=== PATIENT | female | born 1950 | race Caucasian/White ===

== ENCOUNTER → 2017-05-10 | Outpatient (CLI) | payer BC ==
[~2017-05-10] MED LIST: CALC-338 PO; CITA20TA4 PO; CLX40 PO; ERGO1CAP35 PO; FIBER PO; GUMMY VITAMINS PO; LEVO50TA PO; LISI-725 PO; OXYC-57 PO; SNK PO; ferrous sulfate PO
== END | disposition home or self-care (01) ==
LOC: C.PAPS 10:46
PROVIDERS: ATTEND Obstetrics & Gynecology
DX: Z01.411 Encounter for gynecological examination (general) (routine) with abnormal findings (principal)

== ENCOUNTER → 2017-05-10 | Outpatient (CLI) | payer BC ==
--- NOTE | 2017-05-11 15:39 | MAMMOGRAPHY REPORT ---
BILATERAL DIGITAL SCREENING MAMMOGRAM TOMOSYNTHESIS WITH CAD: 05/10/2017 CLINICAL HISTORY: Routine screening. TECHNIQUE: Breast tomosynthesis in addition to standard 2D mammography was performed. Current study was also evaluated with a Computer Aided Detection (CAD) system. COMPARISON: Comparison is made to exams dated: 04/02/2016 mammogram, 01/01/2015 mammogram, 09/19/2013 m ammogram, 08/25/2012 mammogram, 08/18/2011 mammogram, and 08/14/2010 mammogram - [facility] nter. BREAST COMPOSITION: There are scattered areas of fibroglandular density in both breasts. FINDINGS: There is stable asymmetry in the 12:00 left breast, and mild vascular calcifications bilate rally. No suspicious mass, architectural distortion or cluster of microcalcifications is seen. IMPRESSION: ACR BI-RADS CATEGORY 1: NEGATIVE There is no mammographic evidence of malignancy. A 1 year screening mammogram is recommended. The pa tient will receive written notification of the results. Approximately 10% of breast cancers are not detected with mammography. A negative mammographic report should not delay biopsy if a clinically suggestive mass is present. Nataly Ocampo M.D. ay/:05/10/2017 15:46:59 Surgical Manager: Sachin LOTT(R)(M), [facility] letter sent: Normal 1/2 BI-RADS Code: ACR BI-RADS Category 1: Negative
== END | disposition home or self-care (01) ==
LOC: C.MAMM 12:21
PROVIDERS: ATTEND Obstetrics & Gynecology
DX: Z12.31 Encounter for screening mammogram for malignant neoplasm of breast (principal)

== ENCOUNTER 2017-08-18 09:39 | Inpatient (IN) | payer BC, OTHER ==
[2017-08-02 13:47] VITALS: BMI 27.0
[2017-08-02 14:14] LABS: BASO % 0.2 %; BASO ABS # 0.01 K/uL (0-0.2); EOS % 1.4 %; EOS ABS # 0.07 K/uL (0-0.5); HEMATOCRIT 38.8 % (37-47); HEMOGLOBIN 12.6 g/dL (12.0-16.0); LYMPH % 23.1 %; LYMPH ABS # 1.16 K/uL (1.2-3.4); MEAN CELL VOLUME 91.7 fL (80-100); MEAN CORPUSCULAR HEMOGLOBIN 29.8 pg (25-34); MEAN CORPUSCULAR HGB CONC 32.5 g/dl (32-36); MEAN PLATELET VOLUME 11.8 fL (7.4-10.4); MONO % 7.4 %; MONO ABS # 0.37 K/uL (0.11-0.59); NEUT % 67.9 %; NEUT ABS # 3.42 K/uL (1.4-6.5); PLATELET COUNT 213 K/uL (130-400); RED CELL DISTRIBUTION WIDTH CV 13.2 % (11.5-14.5); RED CELL DISTRIBUTION WIDTH SD 44.2 fL (36.4-46.3); WHITE BLOOD COUNT 5.03 K/uL (4.8-10.8)
[2017-08-02 14:28] LABS: HEMOGLOBIN A1C 5.8 % (4.5-5.6)
[2017-08-02 14:29] LABS: ALBUMIN 3.5 gm/dl (3.4-5.0); CALCIUM 8.6 mg/dl (8.5-10.1); CREATININE 0.8 mg/dl (0.60-1.20); POTASSIUM 3.6 mmol/L (3.5-5.1)
--- NOTE | 2017-08-02 14:30 | PAT Medication Instructions ---
Service Date Aug 02, 2017. Current Home Medication List Cholecalciferol (Vitamin D3), 1 TAB PO WK Citalopram Hydrobromide (Citalopram), 1 TAB PO QAM Ferrous Sulfate (Iron), 1 TAB PO QAM Ibuprofen (Advil), 200-400 MG PO Q8 PRN for Pain Levothyroxine Sodium (Synthroid), 50 MCG PO QAM Lisinopril (Zestril), 20 MG PO QAM Multiple Vitamin (Multiple Vitamins), 4 PIECE PO QDL Omeprazole (Prilosec), 20 MG PO QAM Pramipexole Dihydrochloride (Pramipexole Dihydrochlori), 1 TAB PO QPM Ranitidine (Zantac), 150 MG PO QAM Medication Instructions For Your Scheduled Surgery -Check with the surgeon for instructions for: Ibuprofen (Advil), 200-400 MG PO Q8 PRN for Pain - Hold the following medications the night before surgery: Pramipexole Dihydrochloride (Pramipexole Dihydrochlori), 1 TAB PO QPM - Hold the following medications the morning of surgery: Cholecalciferol (Vitamin D3), 1 TAB PO WK Ferrous Sulfate (Iron), 1 TAB PO QAM Lisinopril (Zestril), 20 MG PO QAM - Take the following medications the morning of surgery with a sip of water: Citalopram Hydrobromide (Citalopram), 1 TAB PO QAM Levothyroxine Sodium (Synthroid), 50 MCG PO QAM Omeprazole (Prilosec), 20 MG PO QAM Ranitidine (Zantac), 150 MG PO QAM - Take the following medications as scheduled the afternoon/night before surgery : Multiple Vitamin (Multiple Vitamins), 4 PIECE PO QDL If you have any questions please call us at [phone] or [phone] or [phone]
--- NOTE | 2017-08-02 14:56 | DIAGNOSTIC IMAGING REPORT ---
CHEST 2 VIEWS ROUTINE HISTORY: 67 years-old Female PAT preoperative exam. No acute chest complaints. COMPARISON: Chest radiograph 11/13/2014 TECHNIQUE: PA and lateral views of the chest FINDINGS: Cardiomediastinal and hilar silhouettes are within normal limits. There is no pneumothorax, pleural effusion, focal airspace consolidation or overt pulmonary edema. Atherosclerosis of the aorta. The bones of the chest appear grossly intact. Multilevel endplate spurring about the spine. PEG tube projects over the upper abdomen. IMPRESSION: No acute process. The above report was generated using voice recognition software. It may contain grammatical, syntax or spelling errors. Electronically signed by: Melecio Rossi M.D. 08/02/2017 2:55 PM Dictated Date/Time: 08/02/2017 2:54 PM
--- NOTE | 2017-08-17 11:31 | HISTORY & PHYSICAL EXAMINATION ---
DATE OF ADMISSION: 08/18/2017 CHIEF COMPLAINT: Right knee pain. HISTORY OF PRESENT ILLNESS: The patient is a 67-year-old female with known osteoarthritis about her right knee. She has had a previous corticosteroid injection with minimal relief. She has pain with activities of daily living. She has pain with prolonged weightbearing and standing activities. She has difficulty with any kneeling, bending, or squatting activities. Due to ongoing pain and disability, she now desires to proceed with right total knee arthroplasty. PAST MEDICAL HISTORY: Hypertension, depression, hypothyroidism, anemia, acid reflux, obesity. PAST SURGICAL HISTORY: Gastric bypass, laparoscopic band surgery, hand surgery. MEDICATIONS: Lisinopril 20 mg daily, levothyroxine 50 mcg daily, multivitamin daily, Citracal plus D daily, vitamin D3 a 1000 units daily, citalopram 40 mg daily, omeprazole 20 mg daily, Mobic 15 mg daily. ALLERGIES: No known drug allergies. SOCIAL HISTORY AND REVIEW OF SYSTEMS: Noncontributory. PHYSICAL EXAMINATION: GENERAL: Well-nourished, well-developed female who appears her stated age. HEENT: Normocephalic, atraumatic, extraocular movements intact, oropharynx pink and moist. NECK: Supple without adenopathy. LUNGS: Clear to auscultation bilaterally. HEART: Regular rate and rhythm. ABDOMEN: Soft, nontender, nondistended. EXTREMITIES: The upper extremities are within normal limits. The right knee has a neutral alignment. Her range of motion from 0 to 125 degrees. She complains primarily of medial compartment pain. She has mild crepitus with range of motion. X-RAYS: X-rays were reviewed. She has a slight varus aligned knee. She has bone on bone arthritis of the medial compartment with medial joint line osteophytes. ASSESSMENT: Right knee degenerative joint disease. PLAN: Risks versus benefits were discussed, consent was obtained. We will proceed with right total knee arthroplasty as indicated.
[2017-08-18] VITALS (8 sets, daily range): BP systolic 111–140; BP diastolic 67–91; PULSE 64–82; TEMP 36.4–36.9; O2SAT 94–100; Ht 165.1 cm; Wt 74.3 kg
[~2017-08-18] VITALS: Ht 165.1 cm; Wt 74.3 kg
[2017-08-18] MEDS: TRANEXAMIC ACID INJ 1,000 MG x 2 Bags IV SCH ×4 (06:30→11:55)
[~2017-08-18 09:39] MED LIST changes: +ACETAMINOPHEN 500 MG TAB PO SCH; +BUPIVACAINE/EPINEPHRINE 0.5% MPF 1:200,000 30 ML VIAL ONE; -CALC-338 PO; +CEFAZOLIN 1000MG IV PUSH 7.5 ML IV SCH; +CHOL1000 PO; +CITA-294 PO; -CITA20TA4 PO; -CLX40 PO; +CeleBREX 200 MG CAP PO SCH; +DEXAMETHASONE 4 MG TAB PO SCH; +DEXAMETHASONE SOD INJ 4 MG/ML VIAL ONE; -ERGO1CAP35 PO; +FAMOTIDINE 20 MG TAB PO SCH; +FERR1TAB23 PO; -FIBER PO; +GABAPENTIN 300 MG CAP PO SCH; -GUMMY VITAMINS PO; +IBUP-1050 PO; +LACTATED RINGER'S 1000ML 1,000 ML IV SCH; +LACTATED RINGER'S 1000ML 500 ML IV SCH; +METOCLOPRAMIDE HCL 10 MG TAB PO SCH; +MULT-94 PO; -OXYC-57 PO; +PRAM0.259 PO; +PRLSR20 PO; +RANI150T85 PO; +ROPIVACAINE 5MG/ML 30 ML 150 MG, BUPIVACAINE 0.5% MPF INJ 30 ML, EpINEphrine HCL INJ 0.... INFIL SCH; -SNK PO; +SODIUM CHLORIDE 0.9% INJ 10 ML VIAL ONE; -ferrous sulfate PO
--- NOTE | 2017-08-18 10:00 | History & Physical Bridge Note ---
H&P Re-Evaluation Bridge Note: I have examined the patient, reviewed the History & Physical and in the interval since the performance of the History & Physical I have noted the following changes of clinical significance: No changes noted
[2017-08-18] MEDS ORDERED: CALC1CHW71 PO (10:08)
[2017-08-18] MEDS ORDERED: BACITRACIN 50000 UNIT VIAL ONE (10:29)
[2017-08-18] MEDS ORDERED: ORTHO JOINT ANESTHETIC ONE (10:29)
[2017-08-18] MEDS ORDERED: POVIDONE-IODINE OP SOLN 30 ML BTL ONE (10:29)
[2017-08-18] MEDS ORDERED: FENTANYL CITRATE INJ 50 MCG/1 ML 2 ML VIAL ONE (10:34)
[2017-08-18] MEDS ORDERED: ONDANSETRON INJ 2 MG/ML 2 ML VIAL ONE (10:34)
[2017-08-18] MEDS ORDERED: MIDAZOLAM HCL 1 MG/ML 2ML VIAL ONE (10:34)
[2017-08-18] MEDS ORDERED: LIDOCAINE HCL 2% 2 ML VIAL (20MG/ML) ONE (10:34)
[2017-08-18] MEDS ORDERED: PROPOFOL IV EMULSION 10 MG/ML 20 ML VIAL ONE (10:34)
[2017-08-18] MEDS ORDERED: ATROPINE SULFATE 0.1 MG/ML 5ML SYR IV PRN (11:45)
[2017-08-18] MEDS ORDERED: FENTANYL CITRATE INJ 50 MCG/1 ML 2 ML VIAL IV PRN (11:45)
[2017-08-18] MEDS ORDERED: ONDANSETRON INJ 2 MG/ML 2 ML VIAL IV PRN ×2 (11:45→13:45)
[2017-08-18] MEDS ORDERED: PROMETHAZINE HCL INJ 6.25 MG in SODIUM CHLORIDE 0.9% 50ML 50 ML IV PRN (11:45)
[2017-08-18] MEDS ORDERED: EpHEDrine SULFATE INJ 50 MG/ML AMP IV PRN (11:45)
[2017-08-18] MEDS ORDERED: BUPIVACAINE 0.5 % 5 MG/1 ML PF 10ML VIAL ONE (11:57)
--- NOTE | 2017-08-18 13:10 | [facility] Post Operative Brief Note ---
Immediate Operative Summary Operative Date August 18, 2017. Pre-Operative Diagnosis Degenerative Joint Disease, Right Knee Post-Operative Diagnosis Degenerative Joint Disease, Right Knee Procedure(s) Performed Right Total Knee Arthroplasty Surgeon Dr. Del Mahajan Wax Pot Tender Surgeon(s) Aris Messer PA-C Estimated Blood Loss 10ML Findings Consistent with Post-Op Diagnosis Specimens Permanent Solution: A.) Right Knee Bone and Tissue Anesthesia Type MAC Spinal Regional Complication(s) none Disposition Accompanied Pt To Recover: no Disposition: Recovery Room / PACU
[2017-08-18] MEDS ORDERED: ALUMINUM/MAGNESIUM/SIMETH (MAALOX MAX) 30 ML UDC PO PRN (13:45)
[2017-08-18] MEDS ORDERED: CEFAZOLIN IV 1,000 MG in DEXTROSE 5% 50ML 50 ML IV SCH (13:45)
[2017-08-18] MEDS ORDERED: MAGNESIUM HYDROXIDE SUSP 30 ML UDC PO PRN (13:45)
[2017-08-18] MEDS ORDERED: METOCLOPRAMIDE HCL INJ 5 MG/ML 2 ML VIAL IV PRN (13:45)
--- NOTE | 2017-08-18 13:57 | OPERATIVE REPORT ---
DATE OF OPERATION: 08/18/2017 PREOPERATIVE DIAGNOSIS: Osteoarthritis, right knee. POSTOPERATIVE DIAGNOSIS: Osteoarthritis, right knee. PROCEDURE: Right total knee arthroplasty. SURGEON: Dr. Mahajan. BUS DRIVER/MONITOR: Aris Messer PA-C. ANESTHESIA: Spinal. COMPLICATIONS: None. IMPLANTS USED: Femoral size 4, tibia size 4, tibial poly 13, patella size 36. DISPOSITION: Recovery room, stable. OPERATION AND FINDINGS: Following induction of spinal anesthesia, the patient's right leg was prepped and draped in the usual sterile manner. Limb was exsanguinated with an Esmarch bandage and tourniquet was inflated to 350 mmHg. A longitudinal incision was made anteriorly. Subcutaneous tissue was sharply dissected. Electrocautery was used for hemostasis. Prepatellar bursa was incised and median parapatellar incision was performed. Patella was everted and the knee was flexed. Fat pad was removed to aid in visualization and the anterior and posterior cruciate ligaments were removed. The medial face of the tibia was cleared of soft tissue first with a Bovie and a Lowery elevator. This tissue was retracted posteriorly using a blunt Hohmann. A Handy retractor was used to expose the synovium above on the anterior aspect of the femur and this was removed down to bone. The PSI guide was placed on the distal femur and two pins were placed anteriorly and kept in position and two additional pins were placed distally and removed. The distal femoral cutting block was placed in position and the distal femoral cut was used in the +0 setting. Next, the cutting block was removed and the femoral 4 block was placed in the distal end of the femur. Care was taken to ensure appropriate external rotation and feeler gauge was used to ensure no notching would occur. The femoral block was centered on the distal femur and in the medial and lateral direction and was fixed using two bone screws. The gold pins were then removed. The oscillating saw was used to create the bone cuts and the distal femoral cutting block was removed and the reciprocating saw was used to further trim the femoral cuts as well as a deep in the area for the trochlear groove. Next, posterior condyle remnants were removed. Following this, a meniscal clamp and knife were utilized to remove the anterior portion of both medial and lateral meniscus. The proximal tibia PSI guide was placed into position and the proximal tibial cutting guide was screwed into position. The extra medullary alignment guide was utilized to ensure appropriate alignment. The proximal tibia was cut and the proximal tibial cutting block was removed and this bone fragment was removed. The appropriate guide was used to perform the notch cut on the distal femur and a lamina blacktop spreader and a cochlear knife were utilized to finish both medial and lateral meniscectomies to remove any remnants of the posterior or anterior cruciate ligaments. Following this, the distal femoral component was impacted into position and blunt Bhavesh was used to sublux the tibia anteriorly. The proximal tibia was sized and a 4 tibial tray was chosen as the size to be used. This was put into position and appropriate external rotation and a double check with extramedullary alignment guide was performed. The canal for the tibial stem was prepared first with a 17 mm drill and then the punch and a mallet and the trial tibial poly was placed. A 13 was chosen the size to be used. It was brought to extension and the patella was prepared with the patellar reamer. A 36 component was chosen the size to be used. The trial component was placed and knee was taken through a full range of motion and there was found to be no lateral subluxation of the tibia. No lateral release was required. The trials were all removed. The final components were obtained and assembled. Cement was mixed. The knee was thoroughly irrigated and the ortho mix was injected about the knee joint. The final components were cemented into position. After thoroughly suctioning and drying the bone ends, all excess cement was removed. The knee was held in extension while the cement hardened. The wound was irrigated and closed over a Hemovac drain. #1 Vicryl was used to close the extensor mechanism. Subcutaneous tissues closed using 0 Dexon. Skin was closed with paul. Sterile dressing of Adaptic, 4 x 4's, sterile Webril, and Patrick was applied. The patient tolerated the procedure well. Due to the complex nature of the procedure, the entire surgery was performed with the operational assistance of Aris Messer PA-C. The healthcare administrative assistant, under direct supervision, was involved in the actual performance of all aspects of the surgical procedure including hemostasis, tissue retraction and incision, instrument management, patient positioning, and wound closure. I attest to the content of the Intraoperative Record and any orders documented therein. Any exception s are noted below.
--- NOTE | 2017-08-18 14:15 | DIAGNOSTIC IMAGING REPORT ---
R KNEE 1 OR 2 VIEWS ROUTINE HISTORY: 67 years-old Female AP/LATERAL IN PACU RIGHT KNEE right knee osteoarthritis. Status post right knee total joint arthroplasty COMPARISON: None available TECHNIQUE: 2 views of the right knee FINDINGS: Postoperative changes from recent right knee total joint arthroplasty with patellar resurfacing. Alignment is satisfactory without periprosthetic fracture, or retained foreign body. Surgical drain is in place along with expected postsurgical soft tissue swelling and deep tissue air. IMPRESSION: Right knee total joint arthroplasty without complication identified. The above report was generated using voice recognition software. It may contain grammatical, syntax or spelling errors. Electronically signed by: Melecio Rossi M.D. 08/18/2017 2:14 PM Dictated Date/Time: 08/18/2017 2:13 PM
--- NOTE | 2017-08-18 14:36 | Anesthesiology Progress Note ---
Anesthesia Post Op Note Date & Time August 18, 2017 at 14:36 Vital Signs Pain Intensity: 0 Vital Signs Past 12 Hours Date Time Temp Pulse Resp B/P (MAP) Pulse Ox O2 Delivery O2 Flow Rate FiO2 08/18/17 14:25 74 16 115/63 96 Nasal Cannula 2 08/18/17 14:15 72 20 116/62 97 Nasal Cannula 2 08/18/17 14:05 36.2 72 20 124/63 98 Nasal Cannula 2 08/18/17 13:55 75 20 115/62 100 Nasal Cannula 2 08/18/17 13:45 78 20 129/68 100 Oxymask 10 08/18/17 13:35 80 16 121/64 100 Oxymask 10 08/18/17 13:29 36.0 83 16 125/68 96 Oxymask 10 08/18/17 10:09 36.8 70 18 140/67 96 Room Air Notes Mental Status: alert / awake / arousable, participated in evaluation Pt Amnestic to Procedure: Yes Nausea / Vomiting: adequately controlled Pain: adequately controlled Airway Patency, RR, SpO2: stable & adequate BP & HR: stable & adequate Hydration State: stable & adequate Neuraxial Anesthesia: was administered, sensory block is resolving Anesthetic Complications: no major complications apparent
[2017-08-18] MEDS: D5W AND 1/2NSS + 20MEQ KCL 1,000 ML IV SCH (16:18)
[2017-08-18] MEDS: KETOROLAC TROMETHAMINE 15 MG/ML VIAL IV. SCH ×2 (16:19→21:11)
[2017-08-18] MEDS: FERROUS GLUCONATE 324 MG TAB PO SCH (18:06)
[2017-08-18] MEDS: CEFAZOLIN IV 1,000 MG in SYRINGE 0 ML IV SCH (19:38)
[2017-08-18] MEDS: ASPIRIN 81 MG ECTAB PO SCH (21:10)
[2017-08-18] MEDS: PRAMIPEXOLE DIHYDROCHLORIDE 0.25MG TAB PO SCH (21:10)
[2017-08-18] MEDS: DOCUSATE SODIUM 100 MG CAP PO SCH (21:10)
[2017-08-18] MEDS: ACETAMINOPHEN 500 MG TAB PO SCH (21:11)
[2017-08-18] MEDS: ZOLPIDEM TARTRATE 5 MG TAB PO PRN (22:06)
[2017-08-19] MEDS: D5W AND 1/2NSS + 20MEQ KCL 1,000 ML IV SCH (02:18)
[2017-08-19] MEDS: OXYCODONE HCL IR 5 MG TAB (IMMEDIATE RELEASE) PO PRN ×3 (02:23→20:01)
[2017-08-19 03:42] VITALS: BP 120/68; PULSE 63; TEMP 36.7; O2SAT 96
[2017-08-19] MEDS: KETOROLAC TROMETHAMINE 15 MG/ML VIAL IV. SCH ×2 (03:43→10:30)
[2017-08-19] MEDS: CEFAZOLIN IV 1,000 MG in SYRINGE 0 ML IV SCH (03:43)
[2017-08-19] MEDS: LEVOTHYROXINE 50 MCG TAB PO SCH (05:19)
[2017-08-19] MEDS: ACETAMINOPHEN 500 MG TAB PO SCH ×3 (05:19→21:08)
[2017-08-19 06:27] LABS: HEMATOCRIT 30.4 % (37-47); HEMOGLOBIN 10.3 g/dL (12.0-16.0); MEAN CELL VOLUME 90.7 fL (80-100); MEAN CORPUSCULAR HEMOGLOBIN 30.7 pg (25-34); MEAN CORPUSCULAR HGB CONC 33.9 g/dl (32-36); MEAN PLATELET VOLUME 11.5 fL (7.4-10.4); PLATELET COUNT 198 K/uL (130-400); RED CELL DISTRIBUTION WIDTH CV 13.2 % (11.5-14.5); RED CELL DISTRIBUTION WIDTH SD 44.2 fL (36.4-46.3); WHITE BLOOD COUNT 14.02 K/uL (4.8-10.8)
[2017-08-19 07:04] LABS: CALCIUM 7.7 mg/dl (8.5-10.1); CREATININE 0.77 mg/dl (0.60-1.20); POTASSIUM 4.4 mmol/L (3.5-5.1)
[2017-08-19 07:17] VITALS: BP 122/78; PULSE 61; TEMP 36.7; O2SAT 97
[2017-08-19] MEDS ORDERED: DEXAMETHASONE INJ 10 MG in SYRINGE 0 ML IV ONE (07:30)
--- NOTE | 2017-08-19 07:37 | Orthopedic Progress Note ---
Orthopedic Progress Note Date of Service August 19, 2017. Subjective Post OP Day: 1 Reports: feeling well Objective N/V intact, dressing C/D/I (Hemovac in place), toes mobile Date Time Temp Pulse Resp B/P (MAP) Pulse Ox O2 Delivery O2 Flow Rate FiO2 08/19/17 07:17 36.7 61 16 122/78 (93) 97 Room Air 08/19/17 03:42 36.7 63 16 120/68 (85) 96 Room Air 08/18/17 23:07 36.9 76 16 118/73 (88) 94 Room Air 08/18/17 19:50 36.8 66 18 128/91 (103) 95 Room Air 08/18/17 19:40 Room Air 08/18/17 17:47 36.8 64 16 119/72 (88) 94 Room Air 08/18/17 16:40 36.6 82 16 115/69 (84) 98 Room Air 08/18/17 15:45 36.7 70 18 111/67 (82) 99 Nasal Cannula 2.0 08/18/17 15:15 36.4 73 16 111/70 (84) 99 Nasal Cannula 2.0 08/18/17 14:45 36.8 70 16 114/70 (85) 100 Nasal Cannula 2.0 08/18/17 14:45 100 Nasal Cannula 2.0 08/18/17 14:45 100 Nasal Cannula 2.0 08/18/17 14:25 74 16 115/63 96 Nasal Cannula 2 08/18/17 14:15 72 20 116/62 97 Nasal Cannula 2 08/18/17 14:05 36.2 72 20 124/63 98 Nasal Cannula 2 08/18/17 13:55 75 20 115/62 100 Nasal Cannula 2 08/18/17 13:45 78 20 129/68 100 Oxymask 10 08/18/17 13:35 80 16 121/64 100 Oxymask 10 08/18/17 13:29 36.0 83 16 125/68 96 Oxymask 10 08/18/17 10:09 36.8 70 18 140/67 96 Room Air Laboratory Results 24 Hours: Test 08/19/17 05:48 Hematocrit 30.4 % Hemoglobin 10.3 g/dL Assessment & Plan Assessment: 67 yo female stable POD #1 s/p right TKA Plan: 1. Med management 2. DVT prophylaxis- ASA, SCDs 3. PT/OT 4. D/C planning- home w/ HH
--- NOTE | 2017-08-19 07:41 | Discharge Instructions ---
Discharge Instructions Date of Service August 19, 2017. Admission Reason for Admission: Right Knee Osteoarthritis Discharge Discharge Diagnosis / Problem: Right knee arthritis Discharge Goals Goal(s): Decrease discomfort, Improve function Activity Recommendations Activity Limitations: as noted below Weightbearing Status: Right weightbearing (as tolerated) . Instructions / Follow-Up Instructions / Follow-Up ACTIVITY RECOMMENDATIONS: SELF CARE INSTRUCTIONS AFTER TOTAL KNEE REPLACEMENT A. You may need to continue a physical therapy program after discharge from the hospital. There are several options available to you. Your doctor will assist you in selecting the best one for you. 1. An out-patient facility 2 to 3 times a week for therapy or home therapy. 2. Continue working on all exercises taught to you in the hospital. Your goals should be to increase bending of your knee to 90 degrees and beyond and to fully straighten your knee. B. You may progress at your own pace from walking with a walker or crutches to a cane; then to no assistive devices. C. Make walking a part of your daily routine. Be up as much as comfortable with rest periods throughout the day. Rest with leg elevation is very important. Use the ice wrap frequently for the first 3-4 weeks. D. There are no restrictions on activities. You may ride in a car, shop, participate in learning and development associate and all social activities. E. Wear the long elastic stockings (RITCHIE hose) 20 hours a day for 2 weeks after surgery. They can be removed several times a day for laundering and for a bath. F. You may shower, no tub baths until cleared by your doctor. SPECIAL CARE INSTRUCTIONS: VERY IMPORTANT TO READ AND REVIEW A. There are a few signs you need to watch for after you are home. Call [facility] if you notice any of the followin. Increased severe knee pain. Some pain is expected especially when you exercise. 2. Increased swelling in your leg or knee; pain or swelling of the calf muscle in either lower leg. 3. Any fluid drainage from the incision. 4. Shortness of breath or chest pain. B. Please call [facility] at if you have any concerns or questions about your operation or recovery. The doctor or his nurse will return your call promptly. C. You must take antibiotics before dental work, bladder, bowel or other surgery. Your doctor will provide you with a permanent care to carry describing this precaution. IMPORTANT: * REMEMBER TO TAKE ASPIRIN, 81 MG, TWICE DAILY FOR 4 WEEKS UNLESS OTHERWISE DIRECTED. THIS IS YOUR BLOOD THINNER. * HIGH RISK PATIENTS MAY BE PRESCRIBED A STRONGER BLOOD THINNER. THIS WILL BE PROVIDED AT DISCHARGE. * CALL IF INCREASED PAIN, REDNESS, DRAINAGE OR FEVER GREATER THAT 101. * WEAR RITCHIE HOSE 20 HOURS PER DAY FOR 2 WEEKS. Silverlon- This is a large adhesive bandage that contains silver ions. This helps your incision heal by fighting off bacteria and protecting it from the outside environment. You are permitted to shower with this dressing. This will remain on your incision for 7 days and then should be removed. Some visible blood or drainage through the dressing window is normal. If there is significant drainage or leaking noted before the 7 days notify your doctor's office immediately. Once removed, keep incision clean and dry. If there is any drainage or redness noted, please call your surgeon. Zip Skin Closure You have a Zipline Closure System. As noted below, this keeps your incision closed. You may shower with the zipline in place. Keep the wound covered with a dressing as it has the potential to snag on your clothing. The Zipline will remain on for a total of 2 weeks. Do not remove it! You will be given instructions by nursing staff at the time of discharge to care for your Zip Closure System. This devices uses plastic straps to keep your incision closed and protected throughout your recovery. If you have any questions please refer to these instructions first. FOLLOW UP VISIT: If appointment is not already scheduled: Please call [facility] to make a follow-up appointment for 2 weeks after your surgery at . Current Hospital Diet Patient's current hospital diet: Regular Diet Discharge Diet Recommended Diet: Regular Diet Procedures Procedures Performed: Right Total Knee Arthroplasty Pending Studies Studies pending at discharge: no Laboratory Results Hemoglobin A1c Test 08/02/17 13:17 Range/Units Estimated Average Glucose 120 mg/dl Hemoglobin A1c 5.8 H 4.5-5.6 % Medical Emergencies . Who to Call and When: Medical Emergencies: If at any time you feel your situation is an emergency, please call 911 immediately. . Non-Emergent Contact Non-Emergency issues call your: Surgeon Call Non-Emergent contact if: temperature is above 101.5, your pain is not controlled, wound has increased drainage, wound has increased redness . "Provider Documentation" section prepared by Aris Messer PA-C. . [place] Drug Monitoring Program Search Results: patient reviewed within database, no issues identified
--- NOTE | 2017-08-19 07:58 | Anesthesiology Progress Note ---
Anesthesia Post Op Note Date & Time August 19, 2017 at 07:57 Vital Signs Pain Intensity: 8.0 Vital Signs Past 12 Hours Date Time Temp Pulse Resp B/P (MAP) Pulse Ox O2 Delivery O2 Flow Rate FiO2 08/19/17 07:17 36.7 61 16 122/78 (93) 97 Room Air 08/19/17 03:42 36.7 63 16 120/68 (85) 96 Room Air 08/18/17 23:07 36.9 76 16 118/73 (88) 94 Room Air Notes Mental Status: alert / awake / arousable, participated in evaluation Pt Amnestic to Procedure: Yes Nausea / Vomiting: adequately controlled Pain: adequately controlled Airway Patency, RR, SpO2: stable & adequate BP & HR: stable & adequate Hydration State: stable & adequate Neuraxial Anesthesia: was administered, sensory block resolved Anesthetic Complications: no major complications apparent
[2017-08-19] MEDS: MULTIVITAMIN TAB PO SCH (08:50)
[2017-08-19] MEDS: DOCUSATE SODIUM 100 MG CAP PO SCH ×2 (08:50→21:07)
[2017-08-19] MEDS: PANTOprazole SOD 40 MG TAB PO SCH (08:50)
[2017-08-19] MEDS: ASPIRIN 81 MG ECTAB PO SCH ×2 (08:50→21:07)
[2017-08-19] MEDS: FERROUS GLUCONATE 324 MG TAB PO SCH ×3 (08:51→17:33)
[2017-08-19] MEDS: LISINOPRIL 20 MG TAB PO SCH (08:51)
[2017-08-19] MEDS: CITALOPRAM 20 MG TAB PO SCH (08:51)
[2017-08-19 12:29] VITALS: BP 126/77; PULSE 71; TEMP 36.7; O2SAT 96
[2017-08-19 15:15] VITALS: BP 139/78; PULSE 72; TEMP 36.8; O2SAT 95
[2017-08-19] MEDS: MoRPHine SULFATE 4 MG/ML 1 ML CARP\\VIAL IV PRN (21:07)
[2017-08-19] MEDS: CeleBREX 200 MG CAP PO SCH (21:07)
[2017-08-19] MEDS: PRAMIPEXOLE DIHYDROCHLORIDE 0.25MG TAB PO SCH (22:12)
[2017-08-19 23:20] VITALS: BP 132/76; PULSE 68; TEMP 36.5; O2SAT 96
[2017-08-20] MEDS: ZOLPIDEM TARTRATE 5 MG TAB PO PRN ×2 (00:06→20:45)
[2017-08-20] MEDS: OXYCODONE HCL IR 5 MG TAB (IMMEDIATE RELEASE) PO PRN ×4 (00:07→23:30)
[2017-08-20] MEDS: MoRPHine SULFATE 4 MG/ML 1 ML CARP\\VIAL IV PRN ×2 (04:32→12:48)
[2017-08-20] MEDS: ACETAMINOPHEN 500 MG TAB PO SCH ×3 (06:15→20:43)
[2017-08-20] MEDS: LEVOTHYROXINE 50 MCG TAB PO SCH (06:15)
--- NOTE | 2017-08-20 07:47 | Orthopedic Progress Note ---
Orthopedic Progress Note Date of Service August 20, 2017. Subjective Post OP Day: 2 Reports: complaints (HAVING KNEE PAIN. SEEMS SLIGHTLY BETTER THIS AM. CARLINE NOT HELPING, REQUESTING MORPHINE PER NURSING.), Denies: feeling well, chest pain, SOB, nausea / vomiting, light headedness, calf pain Objective calves soft nontender, N/V intact, capillary refill less than 2 sec., dressing C /D/I, A&O x3, toes mobile Date Time Temp Pulse Resp B/P (MAP) Pulse Ox O2 Delivery O2 Flow Rate FiO2 08/19/17 23:35 Room Air 08/19/17 23:20 36.5 68 18 132/76 (94) 96 Room Air 08/19/17 15:30 Room Air 08/19/17 15:15 36.8 72 18 139/78 (98) 95 Room Air 08/19/17 12:29 36.7 71 16 126/77 (93) 96 Room Air 08/19/17 07:50 Room Air Assessment & Plan Assessment: 67 yo female stable POD #2 s/p right TKA Plan: 1. PAIN management- WILL ADD TRAMADOL, ENCOURAGE PO MEDS. IF SHE CAN GO MOST OF THE DAY CONTROLLED ON PO WILL LIKELY DC LATER TODAY. 2. DVT prophylaxis- ASA, SCDs 3. PT/OT 4. D/C planning- home w/ ADVANTAGE, POSSIBLY TODAY
[2017-08-20 07:49] VITALS: BP 127/84; PULSE 68; TEMP 36.7; O2SAT 99
[2017-08-20] MEDS ORDERED: TRAMADOL HCL 50 MG TAB PO PRN (08:00)
[2017-08-20] MEDS ORDERED: RXC5 PO (08:34)
[2017-08-20] MEDS ORDERED: CLB200 PO (08:34)
[2017-08-20] MEDS ORDERED: ULT50X PO (08:34)
[2017-08-20] MEDS ORDERED: ACET-24 PO (08:34)
[2017-08-20] MEDS ORDERED: ASPI-320 PO (08:34)
[2017-08-20] MEDS ORDERED: ONDA-170 PO (08:34)
[2017-08-20] MEDS: FERROUS GLUCONATE 324 MG TAB PO SCH ×3 (08:41→17:49)
[2017-08-20] MEDS: CITALOPRAM 20 MG TAB PO SCH (08:42)
[2017-08-20] MEDS: MULTIVITAMIN TAB PO SCH (08:42)
[2017-08-20] MEDS: PANTOprazole SOD 40 MG TAB PO SCH (08:42)
[2017-08-20] MEDS: LISINOPRIL 20 MG TAB PO SCH (08:42)
[2017-08-20] MEDS: DOCUSATE SODIUM 100 MG CAP PO SCH ×2 (09:58→20:43)
[2017-08-20] MEDS: ASPIRIN 81 MG ECTAB PO SCH ×2 (09:58→20:43)
[2017-08-20] MEDS: CeleBREX 200 MG CAP PO SCH ×2 (12:43→20:43)
[2017-08-20] MEDS ORDERED: NURSING VERBAL MED ORDER ONE (13:15)
[2017-08-20] MEDS ORDERED: OXYCODONE HCL 10 MG TABCR (OXYCONTIN) PO SCH (13:30)
[2017-08-20] MEDS ORDERED: KETOROLAC TROMETHAMINE 15 MG/ML VIAL IV. SCH (13:30)
[2017-08-20 15:13] VITALS: BP 129/77; PULSE 62; TEMP 36.8; O2SAT 96
[2017-08-20] MEDS: PRAMIPEXOLE DIHYDROCHLORIDE 0.25MG TAB PO SCH (20:43)
[2017-08-20 23:20] VITALS: BP 116/72; PULSE 70; TEMP 36.5; O2SAT 93
[2017-08-21] MEDS: OXYCODONE HCL IR 5 MG TAB (IMMEDIATE RELEASE) PO PRN (03:52)
[2017-08-21] MEDS: LEVOTHYROXINE 50 MCG TAB PO SCH (05:33)
[2017-08-21] MEDS: ACETAMINOPHEN 500 MG TAB PO SCH (05:33)
[2017-08-21 06:56] VITALS: BP 122/74; PULSE 85; TEMP 37.2; O2SAT 85; O2SAT 94
--- NOTE | 2017-08-21 08:30 | Orthopedic Progress Note ---
Orthopedic Progress Note Date of Service August 21, 2017. Subjective Post OP Day: 3 Reports: feeling well, Denies: chest pain, SOB, nausea / vomiting, light headedness, calf pain Objective calves soft nontender, N/V intact, capillary refill less than 2 sec., incision C /D/I, A&O x3, toes mobile Date Time Temp Pulse Resp B/P (MAP) Pulse Ox O2 Delivery O2 Flow Rate FiO2 08/21/17 06:56 37.2 85 18 122/74 (90) 94 Room Air 08/20/17 23:30 Room Air 08/20/17 23:20 36.5 70 15 116/72 (87) 93 Room Air 08/20/17 16:00 Room Air 08/20/17 15:13 36.8 62 18 129/77 (94) 96 Room Air 08/20/17 09:30 Room Air Assessment & Plan Assessment: 67 yo female stable POD #3 s/p right TKA Plan: 1. PAIN management- WILL ADD TRAMADOL, ENCOURAGE PO MEDS. DC HOME TODAY 2. DVT prophylaxis- ASA, SCDs 3. PT/OT 4. D/C planning- home w/ ADVANTAGE, DC TODAY
[2017-08-21] MEDS: FERROUS GLUCONATE 324 MG TAB PO SCH (08:42)
[2017-08-21] MEDS: CITALOPRAM 20 MG TAB PO SCH (08:43)
[2017-08-21] MEDS: CeleBREX 200 MG CAP PO SCH (08:43)
[2017-08-21] MEDS: PANTOprazole SOD 40 MG TAB PO SCH (08:44)
[2017-08-21] MEDS: MULTIVITAMIN TAB PO SCH (08:44)
[2017-08-21] MEDS: DOCUSATE SODIUM 100 MG CAP PO SCH (08:44)
[2017-08-21] MEDS: ASPIRIN 81 MG ECTAB PO SCH (08:44)
[2017-08-21] MEDS: LISINOPRIL 20 MG TAB PO SCH (08:44)
[2017-08-21 10:15] VITALS: BP 122/74; PULSE 85; TEMP 37.2; O2SAT 94
== END 2017-08-21 11:33 | disposition home health service (06) | DRG 470 ==
LOC: C.ACU 09:39 → C.3E 11:09 → ENRESERV 14:27
PROC: 0SRC0J9 Replacement of Right Knee Joint with Synthetic Substitute, Cemented, Open Approach (ICD-10-PCS; principal; 2017-08-18 12:15)
DX: M17.11 Unilateral primary osteoarthritis, right knee (principal); I10 Essential (primary) hypertension; F32.9 Major depressive disorder, single episode, unspecified; E03.9 Hypothyroidism, unspecified; K21.9 Gastro-esophageal reflux disease without esophagitis; E66.9 Obesity, unspecified; Z79.899 Other long term (current) drug therapy; Z79.1 Long term (current) use of non-steroidal anti-inflammatories (NSAID); Z98.84 Bariatric surgery status; Z68.27 Body mass index [BMI] 27.0-27.9, adult

== ENCOUNTER → 2017-11-11 | Outpatient (CLI) | payer BC ==
[~2017-11-11] MED LIST changes: +ACET-24 PO; -ACETAMINOPHEN 500 MG TAB PO SCH; +ASPI-320 PO; -BUPIVACAINE/EPINEPHRINE 0.5% MPF 1:200,000 30 ML VIAL ONE; +CALC1CHW71 PO; -CEFAZOLIN 1000MG IV PUSH 7.5 ML IV SCH; +CLB200 PO; -CeleBREX 200 MG CAP PO SCH; -DEXAMETHASONE 4 MG TAB PO SCH; -DEXAMETHASONE SOD INJ 4 MG/ML VIAL ONE; -FAMOTIDINE 20 MG TAB PO SCH; -GABAPENTIN 300 MG CAP PO SCH; -IBUP-1050 PO; -LACTATED RINGER'S 1000ML 1,000 ML IV SCH; -LACTATED RINGER'S 1000ML 500 ML IV SCH; -METOCLOPRAMIDE HCL 10 MG TAB PO SCH; +ONDA-170 PO; -ROPIVACAINE 5MG/ML 30 ML 150 MG, BUPIVACAINE 0.5% MPF INJ 30 ML, EpINEphrine HCL INJ 0.... INFIL SCH; +RXC5 PO; -SODIUM CHLORIDE 0.9% INJ 10 ML VIAL ONE; +ULT50X PO
[2017-11-11 17:38] LABS: BASO % 0.3 %; BASO ABS # 0.02 K/uL (0-0.2); EOS % 2.8 %; EOS ABS # 0.18 K/uL (0-0.5); HEMATOCRIT 43.4 % (37-47); HEMOGLOBIN 13.6 g/dL (12.0-16.0); IG# 0.01 K/uL (0.00-0.02); LYMPH % 23.8 %; LYMPH ABS # 1.53 K/uL (1.2-3.4); MEAN CELL VOLUME 91.9 fL (80-100); MEAN CORPUSCULAR HEMOGLOBIN 28.8 pg (25-34); MEAN CORPUSCULAR HGB CONC 31.3 g/dl (32-36); MEAN PLATELET VOLUME 12.6 fL (7.4-10.4); MONO % 8.2 %; MONO ABS # 0.53 K/uL (0.11-0.59); NEUT % 64.7 %; NEUT ABS # 4.16 K/uL (1.4-6.5); PLATELET COUNT 268 K/uL (130-400); WHITE BLOOD COUNT 6.43 K/uL (4.8-10.8)
[2017-11-11 18:04] LABS: ALBUMIN 3.7 gm/dl (3.4-5.0); ALKALINE PHOSPHATASE 77 U/L (45-117); ALT/SGPT 25 U/L (12-78); AST/SGOT 18 U/L (15-37); BLOOD UREA NITROGEN 12 mg/dl (7-18); CALCIUM 8.4 mg/dl (8.5-10.1); CARBON DIOXIDE 28 mmol/L (21-32); CHOLESTEROL 199 mg/dl (0-200); CREATININE 0.71 mg/dl (0.60-1.20); GLUCOSE 103 mg/dl (70-99); LDL CHOLESTEROL CALCULATED 127 mg/dl; POTASSIUM 4.4 mmol/L (3.5-5.1); SODIUM 140 mmol/L (136-145); TOTAL PROTEIN 7.5 gm/dl (6.4-8.2)
[2017-11-12 07:53] LABS: HEMOGLOBIN A1C 5.8 % (4.5-5.6)
== END | disposition home or self-care (01) ==
LOC: C.LABPVFM 13:58
PROVIDERS: ATTEND Family Medicine
DX: Z96.651 Presence of right artificial knee joint (principal)